=== PATIENT | male | born 1960 ===

== ENCOUNTER 2019-03-15 11:57 | Emergency (ER) | payer OTHER ==
[2019-03-15 12:36] VITALS: BMI 38.2
[2019-03-15 12:37] VITALS: PULSE 80; RESP 18; TEMP 98.7
[2019-03-15] MEDS ORDERED: Lidocaine 5% Patch TD STA (12:43)
--- NOTE | 2019-03-15 13:19 | ED PDOC ---
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 Patient informs of lumbo-sacral back pain s/p lifting a heavy box a work but denies fall or trauma. Pt's last bowel movement this morning. Patient denies any difficulty ambulating and is able to flex lower spine. Patient denies any other injuries, focal weakness, sensory deficits, paresthesias, fevers, chills, chest pain, shortness of breath, cough, abdominal pain, nausea, vomiting, diarrhea, bowel incontinence, dysuria, hematuria, urinary incontinence, or any other complaints. Time/Duration: > week (2 weeks) Symptom Onset: Sudden Symptom Course: Worsening Activities at Onset: Light Context: Home Past Medical History - Provider Review Nursing Documentation Reviewed: Yes - Infectious Disease Hx of Infectious Diseases: None - Cardiac Hx Cardiac Disorders: Yes Hx Hypertension: Yes - Pulmonary Hx Respiratory Disorders: No - Neurological Hx Neurological Disorder: No - HEENT Hx HEENT Disorder: No - Renal Hx Renal Disorder: No - Endocrine/Metabolic Hx Endocrine Disorders: Yes Hx Diabetes Mellitus Type 2: Yes - Hematological/Oncological Hx Blood Disorders: No - Integumentary Hx Dermatological Disorder: No - Musculoskeletal/Rheumatological Hx Musculoskeletal Disorders: No - Gastrointestinal Hx Gastrointestinal Disorders: No - Genitourinary/Gynecological Hx Genitourinary Disorders: Yes Hx Prostate Problems: Yes (Radiation Therapy) - Psychiatric Hx Psychophysiologic Disorder: No Hx Substance Use: No - Surgical History Hx Orthopedic Surgery: Yes (Right shoulder) Family/Social History - Physician Review Nursing Documentation Reviewed: Yes Family/Social History: Unknown Family HX Smoking Status: Never Smoked Hx Alcohol Use: No Hx Substance Use: No Allergies/Home Meds Allergies/Adverse Reactions: Allergies No Known Allergies Allergy (Verified 03/15/19 12:36) Review of Systems - Physician Review All systems were reviewed & negative as marked: Yes - Review of Systems Constitutional: absent: Fevers, Other (chills) Respiratory: absent: SOB, Cough Cardiovascular: absent: Chest Pain Gastrointestinal: absent: Abdominal Pain, Diarrhea, Nausea, Vomiting, Other (bowel incontinence) Genitourinary Male: absent: Dysuria, Hematuria, Other (urinary incontinence) Musculoskeletal: Back Pain (lumbo sacral). absent: Other (fall, trauma, any other injury) Neurological: absent: Focal Weakness, Other (sensory deficits, paresthesias) Physical Exam Vital Signs Reviewed: Yes Vital Signs Temp Pulse Resp BP Pulse Ox 03/15/19 12:36 98.7 F 80 18 128/78 98 Temperature: Afebrile Blood Pressure: Normal Pulse: Regular Respiratory Rate: Normal Appearance: Positive for: Well-Appearing, Non-Toxic, Comfortable Pain Distress: None Mental Status: Positive for: Alert and Oriented X 3 - Systems Exam Head: Present: Atraumatic, Normocephalic Pupils: Present: PERRL Extroacular Muscles: Present: EOMI Conjunctiva: Present: Normal Mouth: Present: Moist Mucous Membranes Neck: Present: Normal Range of Motion. No: MIDLINE TENDERNESS, Paraspinal Tenderness Respiratory/Chest: Present: Clear to Auscultation, Good Air Exchange. No: Respiratory Distress, Accessory Muscle Use, Wheezes, Rales, Rhonchi Cardiovascular: Present: Regular Rate and Rhythm, Normal S1, S2. No: Murmurs, Rub, Gallop Abdomen: Present: Normal Bowel Sounds. No: Tenderness, Distention, Peritoneal Signs, Rebound, Guarding Back: Present: Paraspinal Tenderness (lumbosacral), Other (able to flex lower spine). No: Midline Tenderness Upper Extremity: Present: Normal Inspection. No: Cyanosis, Edema Lower Extremity: Present: Normal Inspection. No: Edema Neurological: Present: GCS=15, CN II-XII Intact, Speech Normal Skin: Present: Warm, Dry, Normal Color. No: Rashes Psychiatric: Present: Alert, Oriented x 3, Normal Insight, Normal Concentration Medical Decision Making ED Course and Treatment: 03/15/19 13:26 Impression: Patient is a 58 year old male, with no significant past medical history, who presents to the emergency department complaining of worsening back pain since 2 weeks. Plan: -- Lidoderm -- Toradol -- Valium -- Reassess and disposition Prior Visits: Notes and results from previous visits were reviewed. Progress Notes: - Medication Orders Current Medication Orders: Discontinued Medications Diazepam (Valium) 5 mg PO ONCE ONE; Protocol Stop: 03/15/19 12:44 Ketorolac Tromethamine (Toradol) 60 mg IM STAT STA Stop: 03/15/19 12:43 Lidocaine (Lidoderm) 1 ea TD DAILY STA Stop: 03/15/19 12:44 - Scribe Statement The provider has reviewed the documentation as recorded by the Scribe Norbert Crouch All medical record entries made by the Scribe were at my direction and personally dictated by me. I have reviewed the chart and agree that the record accurately reflects my personal performance of the history, physical exam, medical decision making, and the department course for this patient. I have also personally directed, reviewed, and agree with the discharge instructions and disposition. Disposition/Present on Arrival - Present on Arrival Any Indicators Present on Arrival: No History of DVT/PE: No History of Uncontrolled Diabetes: No Urinary Catheter: No History of Decub. Ulcer: No History Surgical Site Infection Following: None - Disposition Have Diagnosis and Disposition been Completed?: Yes Diagnosis: Lumbago Disposition: HOME/ ROUTINE Disposition Time: 15:02 Condition: STABLE Discharge Instructions (ExitCare): Low Back Pain (DC) Print Language: DIVEHI Additional Instructions: All medical record entries made by the Scribe were at my direction and personally dictated by me. I have reviewed the chart and agree that the record accurately reflects my personal performance of the history, physical exam, medical decision making, and the department course for this patient. I have also personally directed, reviewed, and agree with the discharge instructions and disposition. Please follow up with your PCP or in clinic Prescriptions: Cyclobenzaprine [Cyclobenzaprine HCl] 10 mg PO Q6H #10 tab Naproxen 500 mg PO BID #10 tablet Referrals: Radha Sweeney MD [Primary Care Provider] - Follow up with primary Forms: [employer] ([place]z), WORK NOTE
[2019-03-15] MEDS ORDERED: Oxycodone/Acetaminophen 5/325 mg Tab PO STA (14:58)
[2019-03-15 15:38] VITALS: BP 125/73; O2SAT 99
== END 2019-03-15 15:41 | disposition home or self-care (01) ==
LOC: ED 11:57 → MERGE 11:57 → ED 15:41
DX: M54.5 Low back pain (principal); E11.9 Type 2 diabetes mellitus without complications; I10 Essential (primary) hypertension
CPT/HCPCS: 96372; 99283; J1885